=== PATIENT | male | born 1960 | race African-American/Black ===

== ENCOUNTER 2019-07-04 22:47 | Emergency (ER) | payer OTHER ==
[~2019-07-04] VITALS: Ht 185.4 cm; Wt 91.0 kg
[2019-07-04] MEDS ORDERED: SODIUM CHLORIDE 0.9% 1,000 ML IV ONE (23:32)
[2019-07-04] MEDS ORDERED: MORPHINE SULFATE 4 MG/ML CPJ (NOT FOR IM USE) IV STA (23:32)
[2019-07-04] MEDS ORDERED: ONDANSETRON HCL 4MG/2ML INJ IV STA (23:32)
[2019-07-04 23:47] LABS: BASOPHILS % 0.3 % (0.0-2.0); HEMATOCRIT. 39.5 % (42.0-52.0); HEMOGLOBIN. 13.2 g/dL (14.0-18.0); LYMPHOCYTES % 7.7 % (20.0-50.0); MEAN CORPUSCULAR HEMOGLOBIN 30.2 pg (28.0-32.0); MEAN CORPUSCULAR VOLUME 90.6 fL (80.0-94.0); MEAN PLATELET VOLUME 9.3 fl (7.4-10.4); MONOCYTES % 5.7 % (2.0-8.0); NEUTROPHILS % 86.3 % (40.0-76.0); PLATELET 173 x1000/uL (130-400); RED BLOOD CELL COUNT 4.36 mill/uL (4.7-6.1); RED CELL DISTRIBUTION WIDTH 12.9 % (11.6-14.6)
[2019-07-04 23:54] LABS: CHLORIDE 113 mEq/L (98-107)
[2019-07-04 23:54] LABS: BG BASE EXCESS -1.1 mmol/L (-2.0-2.0); BG CARBOXYHEMOGLOBIN 0.9 % (0.5-1.5); BG DEOXYHEMOGLOBIN 5.8 % (0.0-5.0); BG FRACTION INSPIRED OXYGEN 21; BG HCO3 ACT 23.7 mmol/L (22.0-26.0); BG METHEMOGLOBIN 1.2 % (0.0-1.5); BG OXYGEN SATURATION 94.1 % (92.0-98.5); BG OXYHEMOGLOBIN 92.1 % (94.0-97.0); BG PCO2 40.1 mmHg (35.0-45.0); BG PO2 72.5 mmHg (75.0-100.0); BG SAMPLE SITE LEFT RADIAL; BG TOTAL HEMOGLOBIN 13.8 g/dL (12.0-18.0); BG VENT MODE ROOM AIR
[2019-07-04 23:57] LABS: ETHANOL BLOOD < 10 mg/dL
[2019-07-05 03:30] VITALS: BP 163/99
== END 2019-07-05 04:12 | disposition home or self-care (01) ==
LOC: EDBD 23:00 → ER 23:00 → CANBEDREQ 07-05 05:02
DX: G93.40 Encephalopathy, unspecified (principal); E16.2 Hypoglycemia, unspecified; R41.82 Altered mental status, unspecified; F16.129 Hallucinogen abuse with intoxication, unspecified
CPT/HCPCS: 36415; 36600; 70450; 71045; 80053; 80307; 80320; 80329; 82375; 82805; 82962; 83605; 84484; 85025; 96361; 96374; 96375; 99284; J2270; J2405; J7030; Z7610; G0480